=== PATIENT | male | born 1930 | race Asian ===

== ENCOUNTER 2016-07-09 10:51 | Outpatient (CLI) | payer OTHER ==
[~2016-07-09 10:51] MED LIST: BENICAR5 MG PO; CARV6.25 PO; DIGO0.2549 PO; FURO40TA93 PO; GLIM4TAB PO; LISI5TAB10 PO; MAGOX 400400 MG PO; MECLIZINE12.5 MG PO; METFTAB PO; ONGLYZA5 MG PO; SPIR25TA66 PO; TRAM50TA PO; XARELTO15 MG PO
[2016-07-09 11:31] LABS: POTASSIUM 4.1 mmol/L (3.6-5.2)
== END 2016-07-09 11:51 | disposition home or self-care (01) ==
LOC: RAD 10:51
PROVIDERS: Internal Medicine Cardiovascular Disease
DX: E78.4 Other hyperlipidemia (principal); I50.9 Heart failure, unspecified
CPT/HCPCS: 36415; 80048; 83880

== ENCOUNTER 2016-09-19 10:35 | Outpatient (CLI) | payer OTHER ==
[2016-09-19 11:12] LABS: PLATELET COUNT 170 K/uL (142-355)
[2016-09-19 11:53] LABS: POTASSIUM 4.7 mmol/L (3.6-5.2)
== END 2016-09-19 19:10 | disposition home or self-care (01) ==
LOC: LABW 10:35
PROVIDERS: Internal Medicine
DX: I50.9 Heart failure, unspecified (principal); G30.9 Alzheimer's disease, unspecified; E11.9 Type 2 diabetes mellitus without complications; E55.9 Vitamin D deficiency, unspecified
CPT/HCPCS: 36415; 80053; 80061; 81000; 82043; 82306; 82570; 82607; 82728; 82747; 83036; 83540; 83550; 83880; 84439; 84443; 85027

== ENCOUNTER 2016-12-21 08:40 | Outpatient (CLI) | payer OTHER ==
[2016-12-21 09:14] LABS: PLATELET COUNT 169 K/uL (142-355)
[2016-12-21 10:08] LABS: POTASSIUM 5.1 mmol/L (3.6-5.2)
== END 2016-12-21 19:01 | disposition home or self-care (01) ==
LOC: LABW 08:40
PROVIDERS: Internal Medicine
DX: E11.9 Type 2 diabetes mellitus without complications (principal); I50.9 Heart failure, unspecified
CPT/HCPCS: 36415; 80053; 80061; 80162; 81000; 82043; 82570; 83036; 83880; 84439; 84443; 85027

== ENCOUNTER 2017-01-16 15:10 | Outpatient (CLI) | payer OTHER | END 2017-01-16 19:09 | disposition home or self-care (01) | LOC: LAB 15:10 → US 15:10 | DX: M54.5 Low back pain (principal) | CPT/HCPCS: 81000 ==

== ENCOUNTER 2017-04-08 14:22 | Outpatient (CLI) | payer OTHER ==
[2017-04-08 15:21] LABS: PLATELET COUNT 157 K/uL (142-355)
== END 2017-04-08 15:25 | disposition home or self-care (01) ==
LOC: LABW 14:22
PROVIDERS: Physician Assistant
DX: I50.9 Heart failure, unspecified (principal)
CPT/HCPCS: 36415; 80053; 80162; 83880; 85027

== ENCOUNTER 2017-05-13 11:15 | Outpatient (CLI) | payer OTHER | END 2017-05-13 19:21 | disposition home or self-care (01) | LOC: LABW 11:15 | DX: Z79.899 Other long term (current) drug therapy (principal); Z51.81 Encounter for therapeutic drug level monitoring | CPT/HCPCS: 36415; 80162 ==

== ENCOUNTER 2017-06-08 09:44 | Outpatient (CLI) | payer OTHER | END 2017-06-08 21:52 | disposition home or self-care (01) | LOC: RAD 09:44 | DX: M54.5 Low back pain (principal) ==

== ENCOUNTER 2017-08-06 11:42 | Outpatient (CLI) | payer OTHER ==
[2017-08-06] MEDS ORDERED: CLOP75TA2 PO (17:31)
[2017-08-06] MEDS ORDERED: LOSA50TA PO (17:32)
[2017-08-06] MEDS ORDERED: POTASSIUM CHLO10 MEQ OR (17:33)
== END 2017-08-06 11:47 | disposition short-term general hospital (02) ==
LOC: AMB 11:42
DX: R07.89 Other chest pain (principal); R06.09 Other forms of dyspnea
CPT/HCPCS: A0425; A0427

== ENCOUNTER 2017-08-06 11:47 | Observation (INO) | payer OTHER ==
[~2017-08-06] VITALS: Ht 175.3 cm; Wt 76.0 kg
[2017-08-06 12:06] VITALS: BP 123/51; TEMP 98.1
[2017-08-06 12:11] LABS: PLATELET COUNT 167 K/uL (142-355)
[2017-08-06 12:26] LABS: PARTIAL THROMBOPLASTIN TIME 29.5 SECONDS (24.5-33.6)
[2017-08-06 12:28] LABS: POTASSIUM 4.9 mmol/L (3.6-5.2)
[2017-08-06 14:15] VITALS: BP 134/62; TEMP 97.1
[2017-08-06 15:00] VITALS: BP 142/63
[2017-08-06 16:19] VITALS: BP 125/60
[2017-08-06] MEDS ORDERED: CLOP75TA2 PO (17:31)
[2017-08-06] MEDS ORDERED: LOSA50TA PO (17:32)
[2017-08-06] MEDS ORDERED: POTASSIUM CHLO10 MEQ OR (17:33)
[2017-08-06 17:47] VITALS: BP 152/75; TEMP 97.8; Ht 175.3 cm; Wt 76.0 kg
[2017-08-06 20:00] VITALS: BP 132/59; TEMP 98.3
[2017-08-07] VITALS: BP 111/53; TEMP 98.4
[2017-08-07 04:00] VITALS: BP 118/61; TEMP 98.8
[2017-08-07 06:38] LABS: POTASSIUM 4.4 mmol/L (3.6-5.2)
[2017-08-07 06:41] LABS: PLATELET COUNT 123 K/uL (142-355)
[2017-08-07 08:00] VITALS: BP 131/53; TEMP 98
--- NOTE | 2017-08-07 14:30 | NUR ---
PT DISCHARGED HOME VIA W/C.
== END 2017-08-07 15:00 | disposition home or self-care (01) ==
LOC: ED 11:47 → MED/SURG 15:06
PROVIDERS: Emergency Medicine; ADMIT Internal Medicine
DX: R07.89 Other chest pain (principal); I25.10 Atherosclerotic heart disease of native coronary artery without angina pectoris; I50.9 Heart failure, unspecified; G30.8 Other Alzheimer's disease; F02.80 Dementia in other diseases classified elsewhere, unspecified severity, without behavioral disturbance, psychotic disturbance, mood disturbance, and anxiety; I48.91 Unspecified atrial fibrillation; I13.0 Hypertensive heart and chronic kidney disease with heart failure and stage 1 through stage 4 chronic kidney disease, or unspecified chronic kidney disease; E11.22 Type 2 diabetes mellitus with diabetic chronic kidney disease; N18.9 Chronic kidney disease, unspecified; J84.89 Other specified interstitial pulmonary diseases; J42 Unspecified chronic bronchitis
CPT/HCPCS: 36415; 80053; 82550; 82948; 83735; 83880; 84484; 85027; 85610; 85730; 93005; 96372; 96374; 99220; 99283; G0378; J1815; J1940

== ENCOUNTER 2017-09-17 12:43 | Inpatient (IN) | payer OTHER ==
[~2017-09-17 12:43] MED LIST changes: +CLOP75TA2 PO; +LOSA50TA PO; +POTASSIUM CHLO10 MEQ OR
[2017-09-18 11:30] LABS: PLATELET COUNT 165 K/uL (142-355)
== END 2017-09-22 10:30 | disposition still patient (30) ==
LOC: PAVC 12:43
PROVIDERS: ADMIT Internal Medicine
CPT/HCPCS: 80053; 80162; 83036; 85027

== ENCOUNTER 2017-09-18 09:07 | Outpatient (CLI) | payer OTHER ==
[2017-09-18 09:32] LABS: PLATELET COUNT 165 K/uL (142-355)
== END 2017-09-18 19:13 | disposition home or self-care (01) ==
LOC: LAB 09:07
PROVIDERS: Internal Medicine
DX: E11.29 Type 2 diabetes mellitus with other diabetic kidney complication (principal); I10 Essential (primary) hypertension; I50.9 Heart failure, unspecified
CPT/HCPCS: 80053; 80162; 83036; 85027

== ENCOUNTER 2017-09-22 11:01 | Inpatient (IN) | payer OTHER | END 2017-10-23 10:25 | disposition still patient (30) | LOC: PAVC 11:01 | PROVIDERS: ADMIT Internal Medicine ==

== ENCOUNTER 2017-09-25 06:24 | Outpatient (CLI) | payer OTHER ==
[2017-09-25 06:49] LABS: POTASSIUM 5.5 mmol/L (3.6-5.2)
== END 2017-09-25 22:12 | disposition home or self-care (01) ==
LOC: LAB 06:24
PROVIDERS: Internal Medicine
DX: R79.89 Other specified abnormal findings of blood chemistry (principal); E11.9 Type 2 diabetes mellitus without complications
CPT/HCPCS: 36415; 80048

== ENCOUNTER 2017-09-26 13:58 | Outpatient (CLI) | payer OTHER | END 2017-09-26 19:33 | disposition home or self-care (01) | LOC: LAB 13:58 | DX: I50.9 Heart failure, unspecified (principal); R53.1 Weakness; I48.91 Unspecified atrial fibrillation | CPT/HCPCS: 82272 ==

== ENCOUNTER 2017-09-30 18:28 | Outpatient (CLI) | payer OTHER | END 2017-09-30 21:34 | disposition home or self-care (01) | LOC: LAB 18:28 | DX: Z13.89 Encounter for screening for other disorder (principal) | CPT/HCPCS: 87081 ==

== ENCOUNTER 2017-10-01 06:38 | Outpatient (CLI) | payer OTHER ==
[2017-10-01 07:58] LABS: POTASSIUM 5.3 mmol/L (3.6-5.2)
== END 2017-10-01 22:02 | disposition home or self-care (01) ==
LOC: LAB 06:38
PROVIDERS: Internal Medicine
DX: N18.3 Chronic kidney disease, stage 3 (moderate) (principal)
CPT/HCPCS: 80048

== ENCOUNTER 2017-10-09 05:15 | Outpatient (CLI) | payer OTHER ==
[2017-10-09 06:51] LABS: POTASSIUM 5.2 mmol/L (3.6-5.2)
== END 2017-10-09 22:28 | disposition home or self-care (01) ==
LOC: LAB 05:15
PROVIDERS: Internal Medicine
DX: E78.4 Other hyperlipidemia (principal)
CPT/HCPCS: 80048

== ENCOUNTER 2017-10-13 10:40 | Outpatient (CLI) | payer OTHER ==
[2017-10-13 11:05] LABS: POTASSIUM 5.9 mmol/L (3.6-5.2)
== END 2017-10-13 18:19 | disposition home or self-care (01) ==
LOC: LAB 10:40
PROVIDERS: Internal Medicine
DX: E87.5 Hyperkalemia (principal)
CPT/HCPCS: 36415; 80048

== ENCOUNTER 2017-10-14 12:34 | Outpatient (CLI) | payer OTHER ==
[2017-10-14 12:51] LABS: POTASSIUM 5.6 mmol/L (3.6-5.2)
== END 2017-10-14 20:34 | disposition home or self-care (01) ==
LOC: LAB 12:34
PROVIDERS: Internal Medicine
DX: E87.5 Hyperkalemia (principal)
CPT/HCPCS: 80048

== ENCOUNTER 2017-10-16 09:26 | Outpatient (CLI) | payer OTHER | END 2017-10-16 19:24 | disposition home or self-care (01) | LOC: LAB 09:26 | PROVIDERS: Internal Medicine | DX: E78.4 Other hyperlipidemia (principal); E87.5 Hyperkalemia | CPT/HCPCS: 36415; 80048 ==

== ENCOUNTER 2017-10-23 11:06 | Inpatient (IN) | payer OTHER | END 2017-11-22 15:06 | disposition still patient (30) | LOC: PAVC 11:06 | PROVIDERS: ADMIT Internal Medicine ==

== ENCOUNTER 2017-10-23 12:10 | Outpatient (CLI) | payer OTHER ==
[2017-10-23 12:44] LABS: POTASSIUM 5.5 mmol/L (3.6-5.2)
== END 2017-10-23 19:26 | disposition home or self-care (01) ==
LOC: LAB 12:10
PROVIDERS: Internal Medicine
DX: E87.5 Hyperkalemia (principal); D64.89 Other specified anemias; I48.2 Chronic atrial fibrillation
CPT/HCPCS: 36415; 80048

== ENCOUNTER 2017-11-03 15:27 | Outpatient (CLI) | payer OTHER | END 2017-11-03 22:51 | disposition home or self-care (01) | LOC: LAB 15:27 | DX: R10.30 Lower abdominal pain, unspecified (principal) | CPT/HCPCS: 81000 ==

== ENCOUNTER 2017-11-22 15:39 | Inpatient (IN) | payer OTHER | END 2017-12-23 08:00 | disposition still patient (30) | LOC: PAVC 15:39 | PROVIDERS: ADMIT Internal Medicine ==

== ENCOUNTER 2017-12-23 09:00 | Inpatient (IN) | payer OTHER | END 2018-01-06 16:00 | disposition E | LOC: PAVC 09:00 | PROVIDERS: ADMIT Internal Medicine ==

== ENCOUNTER 2017-12-28 15:26 | Outpatient (CLI) | payer OTHER ==
[2017-12-28 15:55] LABS: PLATELET COUNT 117 K/uL (142-355)
[2017-12-28 16:10] LABS: POTASSIUM 5.9 mmol/L (3.6-5.2)
== END 2017-12-28 20:17 | disposition home or self-care (01) ==
LOC: LAB 15:26
PROVIDERS: Internal Medicine
DX: R10.9 Unspecified abdominal pain (principal)
CPT/HCPCS: 36415; 80053; 85027

== ENCOUNTER 2017-12-29 12:17 | Inpatient (IN) | payer OTHER ==
[~2017-12-29] VITALS: Ht 175.3 cm; Wt 81.9 kg
[2017-12-29 13:32] LABS: PLATELET COUNT 110 K/uL (142-355)
[2017-12-29 13:46] LABS: POTASSIUM 4.8 mmol/L (3.6-5.2)
--- NOTE | 2017-12-29 14:00 | NUR ---
PT C/O OF COUGH. DR. SIFUENTES ORDERS MIMION BRIAN AND ROBITUSSIN PRN.
--- NOTE | 2017-12-29 15:20 | NUR ---
CRITICAL BNP AND CRITICAL BUN REPORTED TO DR. SIFUENTES. DR SIFUENTES STATES TO KEEP NS AT 100 BECAUSE PT IS DEHYDRATED. DR. SIFUENTES SAYS TO KEEP CLOSE WATCH ON PT AND TO RERPORT ANY SOB.
[2017-12-29 16:49] VITALS: BP 106/68; TEMP 97.5; Ht 175.3 cm; Wt 81.9 kg
[2017-12-29 20:25] VITALS: BP 97/62; TEMP 98.2
[2017-12-30 00:11] VITALS: BP 102/69; TEMP 98.6
[2017-12-30 05:26] VITALS: BP 101/68; TEMP 98.4
[2017-12-30 05:45] LABS: POTASSIUM 4.6 mmol/L (3.6-5.2)
[2017-12-30 08:00] VITALS: BP 104/70; TEMP 98.3
[2017-12-30 12:00] VITALS: BP 101/63; TEMP 97.8
[2017-12-30 16:00] VITALS: BP 103/68; TEMP 97.5
[2017-12-30 20:00] VITALS: BP 104/64; TEMP 98
[2017-12-31] VITALS: BP 126/71; TEMP 97.5
[2017-12-31 04:00] VITALS: BP 110/73; TEMP 97.9
[2017-12-31 08:00] VITALS: BP 141/69; TEMP 97.5
--- NOTE | 2017-12-31 10:30 | NUR ---
16 LAO ECHEVARRIA INSERTED WITH PROPER STERILE TECHNIQUE. PT TOLERATED PROCEDURE WELL.
[2017-12-31 12:00] VITALS: BP 105/75; TEMP 97.8
--- NOTE | 2017-12-31 15:45 | NUR ---
CALLED DR. SIFUENTES TO UPDATE HIM WITH PT STATUS. GAVE ALL VITALS AND PERTINENT INFORMATION SUCH URINE OUTPUT AND RESPIRATORY STATUS. DR. SIFUENTES UNDERSTANDS STATUS OF PT AND ORDERED FOR ME TO CONTINUE MONITORING HIS OUTPUT.
[2017-12-31 16:00] VITALS: BP 101/68; TEMP 97
--- NOTE | 2017-12-31 17:36 | NUR ---
PT HOLLORING OUT IN PAIN. MORPHINE 0.25 ML (0.5MG) GIVEN IV. VITAL SIGNS STABLE. 1805- PT CONTINUES TO CRY OUT IN PAIN. MORPHINE 0.25ML (0.5MG) GIVEN IVP. WILL CONTINUE TO MONITOR PT AND VITAL SIGNS.
--- NOTE | 2017-12-31 17:40 | NUR ---
DR. SIFUENTES CALLED TO CHECK ON PATIENT. GIVE DR. SIFUENTES URINE OUTPUT TOTAL. DR. SIFUENTES INFORMED ME THAT I COULD GO AHEAD AND GIVE THE SECOND DOSE OF LASIX AND REMOVE CATHETER IF IT WAS HURTING PATIENT. I DID NOT GIVE SECOND DOSE OF LASIX AND REPOSITIONED CATHETER.
--- NOTE | 2017-12-31 19:25 | NUR ---
NURSE AIDS AT BEDSIDE TO ASSESS PT AND COLLECT VITAL SIGNS. NURSES CALLED INTO THE ROOM TO ASSESS PTS RESPIRATORY STATUS. PT NOTED TO HAVING 29 SECONDS OF APNEA. VITAL SIGNS OBTAINED. BLOOD PRESSURE 97/52, NORMAL SALINE STARTED AT 100ML/HR. DR. SIFUENTES ATTEMPTED TO BE NOTIFIED, PHONE VOICEMAIL BOX IS FULL. DR. VELAZQUEZ (ER PHYSICIAN) CONTACTED AND AT BEDSIDE. ABG ORDERED AND OBTAINED BY RESPIRATORY. NIGHTSHIFT NURSE AT BEDSIDE AND WILL CONTINUE TO MONITOR PATIENT.
[2017-12-31 20:00] VITALS: BP 107/67; TEMP 97.8
[2018-01-01] VITALS: BP 97/60; TEMP 97.6
[2018-01-01 04:00] VITALS: BP 105/79; TEMP 97.7
[2018-01-01 08:00] VITALS: BP 105/64; TEMP 98.5
[2018-01-01 08:52] LABS: PLATELET COUNT 92 K/uL (142-355)
[2018-01-01 09:03] LABS: POTASSIUM 5.2 mmol/L (3.6-5.2)
[2018-01-01 12:00] VITALS: BP 114/72; TEMP 97.7
--- NOTE | 2018-01-01 14:07 | NUR ---
RECEIVED CALL FROM PITO FROM [facility] Pt. WOULD BE TRANSFERRING TO ROOM [address] MARTIN. FAXED FACE SHEET.
--- NOTE | 2018-01-01 14:13 | NUR ---
DR. SIFUENTES CALLED AND SAID Pt WOULD BE TRANSFERRING TO [facility] TO STONE OR M[facility] BILE DUCT.
--- NOTE | 2018-01-01 15:00 | NUR ---
NOTIFIED EMS OF TRANSFER.
--- NOTE | 2018-01-01 16:00 | NUR ---
ATTEMPT TO CALL REPORT. WILL RETUTN CALL WILL NURSE RETURN. NOTIFIED DR. SIFUENTES TO SIGN. TRANFER FORMS.
--- NOTE | 2018-01-01 16:32 | NUR ---
REPORT CALLED GIVEN TO ANT GARCIA LPN.
--- NOTE | 2018-01-01 16:41 | NUR ---
EMS TRANSFER Pt. VIA STRETCHER TO [facility].
== END 2018-01-01 17:00 | disposition short-term general hospital (02) | DRG 438 ==
LOC: MED/SURG 12:17
PROVIDERS: ADMIT Internal Medicine
DX: K85.90 Acute pancreatitis without necrosis or infection, unspecified (principal); J96.00 Acute respiratory failure, unspecified whether with hypoxia or hypercapnia; I50.23 Acute on chronic systolic (congestive) heart failure; N17.8 Other acute kidney failure; I13.0 Hypertensive heart and chronic kidney disease with heart failure and stage 1 through stage 4 chronic kidney disease, or unspecified chronic kidney disease; N18.4 Chronic kidney disease, stage 4 (severe); R74.8 Abnormal levels of other serum enzymes; I48.91 Unspecified atrial fibrillation; I25.10 Atherosclerotic heart disease of native coronary artery without angina pectoris; I10 Essential (primary) hypertension; G30.8 Other Alzheimer's disease; F02.80 Dementia in other diseases classified elsewhere, unspecified severity, without behavioral disturbance, psychotic disturbance, mood disturbance, and anxiety; E11.42 Type 2 diabetes mellitus with diabetic polyneuropathy; E11.22 Type 2 diabetes mellitus with diabetic chronic kidney disease; R10.9 Unspecified abdominal pain
CPT/HCPCS: 36415; 36600; 80048; 80053; 81000; 82150; 82248; 82805; 82948; 83690; 83880; 84443; 84484; 85027; 93005; 94640; 94664; 94760; J0696; J1940; J2270

== ENCOUNTER 2018-01-01 17:00 | Outpatient (CLI) | payer OTHER | END 2018-01-01 18:23 | disposition short-term general hospital (02) | LOC: AMB 17:00 | DX: K85.90 Acute pancreatitis without necrosis or infection, unspecified (principal); I50.23 Acute on chronic systolic (congestive) heart failure; I13.0 Hypertensive heart and chronic kidney disease with heart failure and stage 1 through stage 4 chronic kidney disease, or unspecified chronic kidney disease; R74.8 Abnormal levels of other serum enzymes; I25.10 Atherosclerotic heart disease of native coronary artery without angina pectoris; F02.80 Dementia in other diseases classified elsewhere, unspecified severity, without behavioral disturbance, psychotic disturbance, mood disturbance, and anxiety; E11.22 Type 2 diabetes mellitus with diabetic chronic kidney disease; R10.9 Unspecified abdominal pain; J96.00 Acute respiratory failure, unspecified whether with hypoxia or hypercapnia; N17.8 Other acute kidney failure; N18.4 Chronic kidney disease, stage 4 (severe); I48.91 Unspecified atrial fibrillation; I10 Essential (primary) hypertension; G30.8 Other Alzheimer's disease; E11.42 Type 2 diabetes mellitus with diabetic polyneuropathy | CPT/HCPCS: A0425; A0427 ==